=== PATIENT | male | born 1975 | race Caucasian/White ===

== ENCOUNTER 2019-06-09 14:16 | Emergency (ER) | payer SELFPAY ==
[2019-06-09] MEDS ORDERED: SODIUM CHLORIDE IRRI 500 ML 500 ML IR ONE (14:38)
[2019-06-09] MEDS ORDERED: SODIUM CHLORIDE 0.9% IRR 500 ML BOTTLE IR ONE (15:00)
[2019-06-09] MEDS ORDERED: HYDROcodone/ACETAMINOPHEN 5-325 MG TAB PO ONE (15:09)
[2019-06-09] MEDS ORDERED: ONDANSETRON 4 MG ODT TAB PO ONE (15:09)
--- NOTE | 2019-06-09 15:15 | Emergency Department Report ---
- General Chief Complaint: Wound/Laceration Stated Complaint: CUT RT HAND Time Seen by Provider: 06/09/19 15:09 Source: patient Mode of arrival: Ambulatory Limitations: No Limitations - History of Present Illness Initial Comments: Patient is 43 years old male with no significant past medical history. Patient presented to the ER after he sustained a laceration to the right wrist and right hand. Patient stated that he cut himself by a saw while he was working just minutes prior to coming to the ER. Patient is actively bleeding from the laceration at the junction between the hands and wrist. The patient immediately moved to Main ER, her to stop the bleeding. After aseptic technique, I immediately explored the wound itself. No arterial bleed observed the patient is actively bleeding. 4 absorbable suture placed into the muscular area. Bleeding immediately stopped. Patient can't function tested and intact. No tendon injury. -: minutes(s) Extremity Location: Right: Wrist, Hand Place: work Context: accidental Associated Symptoms: pain - Related Data Allergies Allergy/AdvReac Type Severity Reaction Status Date / Time No Known Allergies Allergy Unverified 06/09/19 14:34 ED Review of Systems ROS: Stated complaint: CUT RT HAND Other details as noted in HPI Comment: All other systems reviewed and negative Constitutional: denies: chills, fever Respiratory: denies: cough, shortness of breath Cardiovascular: denies: chest pain Gastrointestinal: denies: abdominal pain, nausea Neurological: denies: headache, weakness ED Past Medical Hx - Past Medical History Previous Medical History?: No Hx Hypertension: Yes (no meds X 2 years) - Surgical History Past Surgical History?: Yes Additional Surgical History: right hand - Social History Smoking Status: Never Smoker Substance Use Type: Alcohol ED Physical Exam - General Limitations: No Limitations General appearance: alert, in distress (secondary to pain) - Head Head exam: Present: atraumatic, normocephalic - Eye Eye exam: Present: normal appearance - ENT ENT exam: Present: normal exam, normal orophraynx, mucous membranes moist - Neck Neck exam: Present: normal inspection, full ROM. Absent: tenderness, lymphadenopathy, thyromegaly - Respiratory Respiratory exam: Present: normal lung sounds bilaterally - Cardiovascular Cardiovascular Exam: Present: regular rate, normal heart sounds - GI/Abdominal GI/Abdominal exam: Present: soft. Absent: distended, tenderness, guarding - Expanded Upper Extremity Exam Right Hand Wrist exam: Present: laceration (5 cm) Neuro motor exam: Present: wrist extension intact, thumb opposition intact, thumb IP flexion intact, thumb adduction intact, fingers 2-5 abduction intact Neurosensory exam: Present: 2-point discrimination, radial nerve intact, ulnar nerve intact, median nerve intact Vascular: Present: normal capillary refill, radial pulse (strong +3 ), ulnar pulse (+3 strong). Absent: vascular compromise, pulse deficit radial art, pulse deficit ulnar art, pulse deficit brachial art - Skin Skin exam: Present: warm. Absent: intact ED Course Vital Signs 06/09/19 14:32 Temperature 98.7 F Pulse Rate 92 H Respiratory 18 Rate Blood Pressure 155/107 O2 Sat by Pulse 98 Oximetry - Laceration /Wound Repair Right Hand Wound's Depth, Shape: into muscle, irregular, flap Wound Explored: no foreign body removed Irrigated w/ Saline (ccs): 500 Betadine Prep?: Yes Anesthesia: 1% Lidocaine Wound Debrided: minimal Wound Repaired With: sutures Suture Size/Type: 4:0 Number of Sutures: 8 Layer Closure?: Yes Deep Layer Suture Size/Type: 4:0, chromic Number Deep Layer Sutures: 4 Sterile Dressing Applied?: Yes Critical care attestation.: If time is entered above; I have spent that time in minutes in the direct care of this critically ill patient, excluding procedure time. ED Disposition Clinical Impression: Laceration of wrist, right Disposition: DC-01 TO HOME OR SELFCARE Is pt being admited?: No Condition: Stable Instructions: Suture Care (ED), Laceration (ED) Additional Instructions: Please follow up with her primary care physician in 3 days for follow-up in 7 days for suture removal. Referrals: [facility] [Provider Group] - 3-5 Days
[2019-06-09] MEDS ORDERED: TETANUS,DIPH,PERTUSS(ACELL) VACCINE 0.5 ML SYRINGE IM ONE (15:18)
--- NOTE | 2019-06-09 16:01 | XRay Report ---
RIGHT HAND, 3 VIEWS 06/09/2019 INDICATION / CLINICAL INFORMATION: lac from hand saw. COMPARISON: None available. FINDINGS: No fracture. No radiopaque soft tissue foreign body. Signer Name: Bernardo Maier MD Signed: 06/09/2019 3:56 PM Workstation Name: [id number]
[2019-06-09 16:33] VITALS: BP 136/84
== END 2019-06-09 16:34 | disposition home or self-care (01) ==
LOC: ED 14:16
DX: S61.511A Laceration without foreign body of right wrist, initial encounter (principal); I10 Essential (primary) hypertension; F10.10 Alcohol abuse, uncomplicated; W27.0XXA Contact with workbench tool, initial encounter; Y93.89 Activity, other specified; Y92.89 Other specified places as the place of occurrence of the external cause; Y99.8 Other external cause status
CPT/HCPCS: 90715; Q0162